=== PATIENT | male | born 1990 | race African-American/Black ===

== ENCOUNTER 2021-08-09 15:36 | Inpatient (IN) | payer OTHER ==
[~2021-08-09] VITALS: Ht 165.1 cm; Wt 63.6 kg
--- NOTE | 2021-08-09 16:52 | NUR ---
Spoke to John from [facility], verbal auth given for pt to stay in [place].
[2021-08-09 16:59] LABS: HEMATOCRIT 45.9 % (36.7-47.1); MEAN CORPUSCULAR HEMOGLOBIN 29.2 uug (23.8-33.4); MEAN CORPUSCULAR VOLUME 87.9 fL (73.0-96.2); PLATELET COUNT (AUTO) 242 K/uL (152-348)
[2021-08-09 17:09] LABS: CREATININE 1.2 mg/dL (0.6-1.3); POTASSIUM 3.5 mmol/L (3.5-5.1)
[2021-08-09 17:21] LABS: BILIRUBIN,TOTAL 0.5 mg/dL (0.2-1.0); TOTAL PROTEIN, SERUM 8.2 g/dL (6.4-8.2)
--- NOTE | 2021-08-09 19:13 | NUR ---
Pt transfered to TELE bed room 324 via [facility].
--- NOTE | 2021-08-09 19:30 | NUR ---
Received pt awake , alert and orientedx4 via gurney from er. Pt in no acute distress. Iv intact. Under the care of DR. Jason Matias. Belonging list done. Admission process and care plan initiated.long term assessment done. Safety and comfort provided. Will endorse to incoming nurse for continuity of care.
--- NOTE | 2021-08-09 19:31 | NUR ---
Orthostatic blood pressure done. Dr Hdez aware of the fever.
[2021-08-09 20:00] VITALS: BP_SYST 105; BP_SYST 107; BP_SYST 110; BP_DIAS 57; BP_DIAS 60; BP_DIAS 62
[2021-08-09] MEDS ORDERED: IV 1/2NS 1000 ML 1,000 ML IV PRN (20:00)
[2021-08-09] MEDS ORDERED: ONDANSETRON 4 MG/2 ML VIAL IV PRN (20:00)
[2021-08-09] MEDS ORDERED: MAGNESIUM HYDROXIDE 30 ML LIQUID UDC PO PRN (20:00)
[2021-08-09] MEDS: ACETAMINOPHEN 325 MG TABLET PO PRN (20:36)
[2021-08-10] VITALS: BP 116/49
[2021-08-10 04:00] VITALS: BP 109/55
--- NOTE | 2021-08-10 05:57 | NUR ---
PT slept comfortably. Pt in no acute distress. Prescribed medication given and pt tolerated it well. Pt can make her needs known. Pt on sinus rhythm and sinus tachycardia Iv intact. Safety and comfort provided. Will endorse to incoming nurse for continuity of care.
[2021-08-10] MEDS: ACETAMINOPHEN 325 MG TABLET PO PRN ×2 (06:08→14:22)
[2021-08-10 06:31] LABS: HEMATOCRIT 42.4 % (36.7-47.1); MEAN CORPUSCULAR HEMOGLOBIN 29.4 uug (23.8-33.4); MEAN CORPUSCULAR VOLUME 85.8 fL (73.0-96.2); PLATELET COUNT (AUTO) 228 K/uL (152-348)
--- NOTE | 2021-08-10 06:33 | NUR ---
2 Tylenol prn 650 mg given on my shift for the pt fever. Cooling measures done. Pt afebrile with 98.7 temperature.Vital signs within normal limit. Will endorse to dayshift nurse.
[2021-08-10 06:35] LABS: NEUTROPHILS % (MANUAL) 0 % (42-75)
[2021-08-10 06:37] LABS: CREATININE 1.3 mg/dL (0.6-1.3); MAGNESIUM 1.8 mg/dL (1.8-2.4); PHOSPHOROUS 3.4 mg/dL (2.5-4.9); POTASSIUM 3.6 mmol/L (3.5-5.1)
[2021-08-10 06:52] LABS: THYROID STIMULATING HORMONE 0.155 mIU/mL (0.358-3.740)
[2021-08-10 06:59] LABS: *AMPHETAMINE, URINE NEGATIVE (NEGATIVE); *CANNABINOID, URINE POSITIVE (NEGATIVE); *COCCAINE, URINE NEGATIVE (NEGATIVE); *OPIATE, URINE NEGATIVE (NEGATIVE); *PHENCYCLIDINE SCREEN,URINE NEGATIVE (NEGATIVE)
[2021-08-10] MEDS ORDERED: PANTOPRAZOLE SODIUM 40 MG TABLET.DR PO SCH (07:00)
--- NOTE | 2021-08-10 08:32 | NUR ---
DR BRADY HERE SEEN PATIENT AND WANTS EKG DONE TODAY RESPIRATORY NOTIFIED
--- NOTE | 2021-08-10 09:00 | NUR ---
PATIENT SEEN BY DR CASTRO WITH ORDER TO DISCHARGE PATIENT HOME AFTER ECHO COMPLETED.
[2021-08-10 12:00] VITALS: BP 104/52
--- NOTE | 2021-08-10 13:00 | NUR ---
2 D ECHO COMPLETED ORDERED PATIENT WILL BE DISCHARGED HOME ORDERED BY THE PROVIDER.
[2021-08-10 16:00] VITALS: BP 104/52
--- NOTE | 2021-08-10 16:15 | NUR ---
PATIENT DISCHARGED WITH DISCHARGE INSTRUCTIONS PATIENT INSTRUCTED TO CONTINUE TO ISOLATE HIMSELF FOR A TOTAL OF 14 DAYS FROM HIS FIRST SYMPTOMS AND AND TO FOLLOW UP WITH HIS PRIMARY DOCTOR STAY HYDRATED MUCH ABLE AND HE EXPRESSED UNDERSTANDING. ASSISTED TO THE LOBBY WITH ALL HIS PERSONAL BELONGINGS IV HEPLOCK REMOVED AND NAME BAND REMOVED STATED WILL USE [employer] TO GO HOME BUT FIRST WILL WALK TO THE [employer] [facility]OUND [place] [employer] TO BUY SOME SUPPLIES AND WILL THEN CALL [employer] FROM THERE
== END 2021-08-10 15:15 | disposition home or self-care (01) | DRG 137 ==
LOC: ER 15:36 → TELE3 18:46
PROVIDERS: ATTEND Internal Medicine
DX: U07.1 COVID-19 (principal); E86.0 Dehydration; R55 Syncope and collapse
CPT/HCPCS: 36415; 70030-TC; 70450; 71045; 83735; 84100; 84443; 84481; 84484; 85025; 93005; 93307; A4663; G0378